=== PATIENT | male | born 1950 | race Caucasian/White ===

== ENCOUNTER 2021-02-15 06:07 | Outpatient (REF) | payer MEDICARE, OTHER, SELFPAY ==
[2021-02-15 11:39] LABS: Anion Gap 11 (12-20); Blood Urea Nitrogen 17 mg/dL (9-16); Calcium 9.7 mg/dL (8.4-10.2); Carbon Dioxide 28 mmol/L (22-29); Chloride 105 mmol/L (96-108); Cholesterol 184 mg/dL; Estimated Glomerular Filt Rate > 60; Glucose Random 83 mg/dL (60-115); HDL Cholesterol 59 mg/dL; LDL Cholesterol Calculated 111 mg/dl; Potassium 4.4 mmol/L (3.3-5.1); Sodium 140 mmol/L (135-145); Triglycerides 74 mg/dL
== END 2021-02-15 06:08 | disposition home or self-care (01) ==
LOC: HO.HMGCLDS 06:07
PROVIDERS: PCP Family Medicine; Visit Provider Family Medicine
DX: E78.2 Mixed hyperlipidemia (principal); I10 Essential (primary) hypertension
CPT/HCPCS: 36415; 80048; 80061

== ENCOUNTER 2021-08-12 06:01 | Outpatient (REF) | payer MEDICARE, OTHER, SELFPAY ==
[2021-08-12 12:06] LABS: Cholesterol 166 mg/dL; HDL Cholesterol 54 mg/dL; LDL Cholesterol Calculated 97 mg/dl; Triglycerides 79 mg/dL
== END 2021-08-12 06:02 | disposition home or self-care (01) ==
LOC: HO.HMGCLDS 06:01
PROVIDERS: Visit Provider Internal Medicine
DX: E78.5 Hyperlipidemia, unspecified (principal)
CPT/HCPCS: 36415; 80061

== ENCOUNTER 2022-05-15 06:03 | Outpatient (REF) | payer MEDICARE, OTHER, SELFPAY ==
[2022-05-15 11:12] LABS: MANUAL DIFF FLAG NO
[2022-05-15 11:17] LABS: Basophils Absolute Auto 0.1 X10*3/uL (0.0-0.2); Basophils Percent Auto 0.9 % (0-2); Eosinophils Absolute Auto 0.4 X10*3/uL (0.0-0.4); Eosinophils Percent Auto 5.9 % (0-4); Hematocrit 43.5 % (42.0-52.0); Hemoglobin 14.3 g/dl (14.0-18.0); Imm Gran Abs Auto 0.03 X10*3/uL (0.00-0.03); Imm Gran Pct Auto 0.4 % (0.0-0.4); Lymphocytes Absolute Auto 2.1 X10*3/uL (1.2-4.9); Lymphocytes Percent Auto 29.9 % (20-40); Mean Corpuscular HGB Conc 32.9 g/dl (31.0-36.0); Mean Corpuscular Hemoglobin 31.4 pg (27.0-33.0); Mean Corpuscular Volume 95.6 fL (80.0-98.0); Mean Platelet Volume 10.7 fL (9.4-12.4); Monocytes Absolute Auto 0.5 X10*3/uL (0.1-1.2); Neutrophils Absolute Auto 3.9 x10*3/uL (2.0-8.3); Neutrophils Percent Auto 55.9 % (45-73); Platelet Count 230 X10*3/uL (160-400); Red Blood Count 4.55 X10*6/uL (4.60-5.80); Red Cell Distribution Width 12.5 % (11.0-16.0); White Blood Count 6.9 X10*3/uL (4.8-10.8)
[2022-05-15 11:37] LABS: Alanine Aminotransferase 20 U/L (0-40); Albumin Level 4.3 g/dL (3.5-5.0); Alkaline Phosphatase 58 U/L (39-117); Anion Gap 16 (12-20); Aspartate Amino Transferase 24 U/L (5-37); Bilirubin Total 0.7 mg/dL (0.0-1.0); Blood Urea Nitrogen 17 mg/dL (9-16); Calcium 9.5 mg/dL (8.4-10.2); Carbon Dioxide 26 mmol/L (22-29); Chloride 103 mmol/L (96-108); Cholesterol 155 mg/dL; Estimated Glomerular Filt Rate > 60; Glucose Fasting 87 mg/dL (60-99); HDL Cholesterol 48 mg/dL; LDL Cholesterol Calculated 94 mg/dl; Potassium 4.4 mmol/L (3.3-5.1); Sodium 141 mmol/L (135-145); Total Protein 7.3 g/dL (6.5-8.0); Triglycerides 69 mg/dL
== END 2022-05-15 06:04 | disposition home or self-care (01) ==
LOC: HO.HMGCLDS 06:03
PROVIDERS: PCP Internal Medicine; Visit Provider Internal Medicine
DX: E78.5 Hyperlipidemia, unspecified (principal); I42.9 Cardiomyopathy, unspecified
CPT/HCPCS: 36415; 80053; 80061; 85025

== ENCOUNTER 2023-02-18 06:01 | Outpatient (REF) | payer MEDICARE, OTHER, SELFPAY ==
[2023-02-18 12:21] LABS: Cholesterol 184 mg/dL; HDL Cholesterol 60 mg/dL; LDL Cholesterol Calculated 112 mg/dl; Triglycerides 62 mg/dL
== END 2023-02-18 06:02 | disposition home or self-care (01) ==
LOC: HO.HMGCLDS 06:01
PROVIDERS: PCP Internal Medicine; Visit Provider Internal Medicine
DX: E78.2 Mixed hyperlipidemia (principal)
CPT/HCPCS: 36415; 80061

== ENCOUNTER 2023-04-28 10:02 | Outpatient (AMB) | payer MEDICARE, OTHER, SELFPAY ==
[2023-04-28 10:41] VITALS: BP 108/64; PULSE 50; O2SAT 95; BMI 27.3
--- NOTE | 2023-04-28 10:41 | MHC.PC.OV ---
Vital Signs 04/28/23 10:41 Height 5 ft 6 in Weight 169 lb BMI 27.3 BP 108/64 Blood Pressure Location Rt brachial Position Sitting Pulse 50 Pulse Source Pulse Oximeter Pulse Oximetry (%) 95 Oxygen Delivery Method Room Air Intake Visit Reasons: Annual PE Intake Note: Pt is here today for PE. Allergies No Known Allergies Allergy (Verified 04/28/23 10:46) Medication List - Last Reconciled 04/28/23 by Nikki Hillman MD finasteride 5 mg PO DAILY lisinopril 5 mg PO DAILY metoprolol succinate ER 12.5 mg PO DAILY rosuvastatin 5 mg PO DAILY tadalafil 5 mg PO DAILY tamsulosin 0.4 mg PO DAILY [id number] 200-5-0.8-400 mg caps PO DAILY zinc acetate 50 mg PO DAILY Tobacco use date assessed: 04/28/23 Fall risk assessment: No Falls in past year Last assessed Fall Risk: 04/28/23 Dental Screening Dental Screen Date: 04/28/23 Did you have a dental visit in the last 12 months?: Yes Did you have a dental problem in the last 6 months where you did not have access to dental care?: No Was dental information given to patient?: Patient has dentist HPI Annual PE HPI Details Patient presents for physical. Patient reports episodes of frequent heartburn, occasionally feeling food getting stuck when he tries to swallow and sensitivity after drinking hot beverages. Patient is concerned about esophageal cancer because of strong family history and usually has surveillance EGD every 5 years by [facility]. He is scheduled for colonoscopy in mid June with [facility]. 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 [facility] Family History Father Esophageal cancer, Onset Age: 72 Mother No problems noted. Sister Breast CA Social History Housing: House Patient Tobacco Use Status: Never used Tobacco e-Cigarette/Vaping Use: Never Used Current occupational status: retired Cognitive needs: No Hearing needs: No Vision needs: Yes Questionnaire PHQ-9 Over the last 2 weeks, how often have you been bothered by any of the following problems? 1. Little interest or pleasure in doing things: not at all 2. Feeling down, depressed, or hopeless: not at all 3. Trouble falling or staying asleep, or sleeping too much: not at all 4. Feeling tired or having little energy: not at all 5. Poor appetite or overeating: not at all 6. Feeling bad about yourself - or that you are a failure or have let yourself or your family down: not at all 7. Trouble concentrating on things, such as reading the newspaper or watching television: not at all 8. Moving or speaking so slowly that other people could have noticed. Or the opposite - being so fidgety or restless that you have been moving around a lot more than usual: not at all 9. Thoughts that you would be better off or of hurting yourself in some way: not at all Total score: 0 Depression Screening Interpretation: Negative Depression Screening Done: Yes Source: Developed by Drs. Bipin Kwan, Malika Guaman, Jaime Meyer and colleagues, with an educational theo from [employer]. Thrive Questionnaire Date Thrive assessed: 04/28/23 I am a: Patient What is your living situation today?: I have a steady place to live Within the past 12 months, did the food you bought not last and you didn't have the money to get more?: Never true Within the past 12 months, did you worry whether your food would run out before you got money to buy more?: Never true Do you have trouble paying for medicines?: No Do you have trouble getting transportation to medical appointments?: No Do you have trouble paying your heating and electricity bill?: No Do you have trouble taking care of your child, family member or friend?: No Do you have trouble with day-to-day activities such as bathing, preparing meals, shopping, managing finances, etc.?: No Are you currently unemployed and looking for a job?: No Are you interested in more education?: No Please select the resources that you would like help with: None Currently or been in a relationship where the following occur: no concerns reported AUDIT C Alcohol Use Questionnaire (AUDIT-C) 1. How often do you have a drink containing alcohol?: 2-4 times a month 2. How many drinks containing alcohol do you have on a typical day when you are drinking?: 1 or 2 3. How often do you have six or more drinks on one occasion?: Never Total Score: 2 JACQUELINE-7 AMB Questionnaire JACQUELINE-7 Date JACQUELINE - 7 assessed: 04/28/23 Feeling nervous, anxious, or on edge: 0 = Not at all Not being able to stop or control worryin = Not at all Worrying too much about different things: 0 = Not at all Trouble relaxin = Not at all Being so restless that it is hard to sit still: 0 = Not at all Becoming easily annoyed or irritable: 0 = Not at all Feeling afraid as if something awful might happen: 0 = Not at all Total JACQUELINE-7 score (0-4 normal; 5-9 mild; 10-14 moderate; 15-21 severe): 0 Source: Developed by Drs. Bipin Kwan, Malika Guaman, Jaime Meyer and colleagues, with an educational theo from [employer]. Review of Systems Const All systems reviewed & are unremarkable except as noted in HPI and below Reports no additional complaints Eyes Reports no additional complaints ENT Reports no additional complaints Card Reports no additional complaints Resp Reports no additional complaints GI Reports no additional complaints Reports no additional complaints Musc Reports no additional complaints Physical exam (Primary Care) Vital Signs: Last Vital Signs Pulse 50 04/28/23 10:41 BP 108/64 04/28/23 10:41 Pulse Ox 95 04/28/23 10:41 Oxygen Delivery Method Room Air 04/28/23 10:41 BMI result Body Mass Index 27.3 Tobacco/Smoking Status: Tobacco use Status Tobacco use date assessed 04/28/23 04/28/23 10:50 Patient Tobacco Use Status Never used Tobacco 04/28/23 10:41 e-Cigarette/Vaping Use Never Used 04/28/23 10:41 PHQ-9: PHQ-9 Score PHQ-9: Total score 0 04/28/23 10:51 Depression Screening Interpretation: Negative Thrive Assessment: Date of Thrive Assessment Date Thrive assessed 04/28/23 04/28/23 10:51 Currently or been in a relationship where the following occur: no concerns reported Const General: no acute distress HENMT Ears: hearing grossly normal bilaterally Mouth: Normal oral and palatal mucosa present Throat: Yes posterior oropharynx normal Eyes General: appearance normal, both eyes and all related structures Neck Neck: Yes no lymphadenopathy and Yes supple Resp Effort & Inspection: normal respiratory effort Auscultation: clear to auscultation bilaterally Cardio Rhythm: regular rhythm Heart sounds: S1 normal heart sound present and S2 normal heart sound present GI Inspection: Yes normal to inspection Palpation (GI): Soft to palpation Percussion: Yes normal to percussion Auscultation: normal bowel sounds Assessment and Plan Assessment & Plan (1) GERD (gastroesophageal reflux disease): Code(s): K21.9 - Gastro-esophageal reflux disease without esophagitis Plan: Continue anti GERD diet PPIs and patient will discuss need for EGD with a continuous mining machine coal miner at [facility] (2) Hx of esophagogastroduodenoscopy: Comment: Q 5 yrs, [facility] . FHx esophageal ca Code(s): Z98.890 - Other specified postprocedural states (3) Hyperlipidemia: Code(s): E78.5 - Hyperlipidemia, unspecified Plan: Continue crestor (4) Annual physical exam: Code(s): Z00.00 - Encounter for general adult medical examination without abnormal findings (5) Cardiomyopathy: Comment: Dr. León annually, last Echo 01/2019, EF 50%, MR mild, Code(s): I42.9 - Cardiomyopathy, unspecified Plan: Continue current medications and follow-up with Cardiology Orders: Orders Complete Blood Count Auto Diff Today E78.5 - Hyperlipidemia, unspecified, Z00.00 - Encounter for general adult medical examination without abnormal findings Comprehensive [place]. Panel Fast Today E78.5 - Hyperlipidemia, unspecified, Z00.00 - Encounter for general adult medical examination without abnormal findings Referrals Gastroenterology Referral K21.9 - Gastro-esophageal reflux disease without esophagitis, Z00.00 - Encounter for general adult medical examination without abnormal findings, Z98.890 - Other specified postprocedural states Coding Level of Care Code Est Pt Prev Care >65y(90333) Diagnoses GERD (gastroesophageal reflux disease) K21.9 Hx of esophagogastroduodenoscopy Z98.890 Hyperlipidemia E78.5 Annual physical exam Z00.00 Cardiomyopathy I42.9
== END 2023-04-28 11:35 | disposition home or self-care (01) ==
PROVIDERS: Visit Provider Internal Medicine
DX: Z00.00 Encounter for general adult medical examination without abnormal findings (principal); K21.9 Gastro-esophageal reflux disease without esophagitis; Z98.890 Other specified postprocedural states; I42.9 Cardiomyopathy, unspecified; E78.5 Hyperlipidemia, unspecified
CPT/HCPCS: 99397

== ENCOUNTER 2023-07-24 06:04 | Outpatient (REF) | payer MEDICARE, OTHER, SELFPAY | END 2023-07-24 06:05 | disposition home or self-care (01) | LOC: HO.HMGCLDS 06:04 | PROVIDERS: PCP Internal Medicine; Visit Provider Internal Medicine | DX: Z00.00 Encounter for general adult medical examination without abnormal findings (principal); E78.5 Hyperlipidemia, unspecified | CPT/HCPCS: 36415; 80053; 85025 ==

== ENCOUNTER 2024-04-29 08:02 | Outpatient (AMB) | payer MEDICARE, OTHER, SELFPAY ==
[2024-04-29 08:06] VITALS: BP 102/60; PULSE 53; O2SAT 98; BMI 26.6
--- NOTE | 2024-04-29 08:06 | A.OFFPC_ITS ---
Vital Signs 04/29/24 08:06 Height 5 ft 6 in Weight 165 lb BMI 26.6 BP 102/60 Blood Pressure Location Lt brachial Position Sitting Pulse 53 Pulse Source Pulse Oximeter Pulse Oximetry (%) 98 Oxygen Delivery Method Room Air Intake Visit Reasons: Annual Pe Intake Note: Pt is here today for PE. Allergies No Known Allergies Allergy (Verified 04/29/24 08:09) Medication List - Last Reconciled 04/29/24 by Nikki Hillman MD finasteride 5 mg PO DAILY lisinopril 5 mg PO DAILY metoprolol succinate ER 12.5 mg PO DAILY rosuvastatin 5 mg PO DAILY tadalafil 5 mg PO DAILY tamsulosin 0.4 mg PO DAILY [id number] 200-5-0.8-400 mg caps PO DAILY zinc acetate 50 mg PO DAILY Tobacco use date assessed: 04/29/24 Fall risk assessment: No Falls in past year Last assessed Fall Risk: 04/29/24 Dental Screening Dental Screen Date: 04/29/24 Did you have a dental visit in the last 12 months?: Yes Did you have a dental problem in the last 6 months where you did not have access to dental care?: No Was dental information given to patient?: Patient has dentist HPI Annual Pe HPI Details Patient presents for PE [facility] Medical History History of broken collarbone Surgical History H/O removal of cyst History of repair of ACL H/O foot surgery Family History Father Esophageal cancer, Onset Age: 72 Mother No problems noted. Sister Breast CA Social History Housing: House Patient Tobacco Use Status: Never used Tobacco e-Cigarette/Vaping Use: Never Used service: No Current occupational status: retired Cognitive needs: No Hearing needs: No Vision needs: Yes Questionnaire PHQ-9 Over the last 2 weeks, how often have you been bothered by any of the following problems? 1. Little interest or pleasure in doing things: not at all 2. Feeling down, depressed, or hopeless: not at all 3. Trouble falling or staying asleep, or sleeping too much: not at all 4. Feeling tired or having little energy: not at all 5. Poor appetite or overeating: not at all 6. Feeling bad about yourself - or that you are a failure or have let yourself or your family down: not at all 7. Trouble concentrating on things, such as reading the newspaper or watching television: not at all 8. Moving or speaking so slowly that other people could have noticed. Or the opposite - being so fidgety or restless that you have been moving around a lot more than usual: not at all 9. Thoughts that you would be better off or of hurting yourself in some way: not at all Total score: 0 Depression Screening Interpretation: Negative Depression Screening Done: Yes 25148 - PHQ-9 Billing: Yes Source: Developed by Drs. Bipin Kwan, Malika Guaman, Jaime Meyer and colleagues, with an educational theo from [employer]. Thrive Questionnaire Date Thrive assessed: 04/29/24 I am a: Patient What is your living situation today?: I have a steady place to live Within the past 12 months, did the food you bought not last and you didn't have the money to get more?: Never true Within the past 12 months, did you worry whether your food would run out before you got money to buy more?: Never true Do you have trouble paying for medicines?: No Do you have trouble getting transportation to medical appointments?: No Do you have trouble paying your heating and electricity bill?: No Do you have trouble taking care of your child, family member or friend?: No Do you have trouble with day-to-day activities such as bathing, preparing meals, shopping, managing finances, etc.?: No Are you currently unemployed and looking for a job?: No Are you interested in more education?: I choose not to answer this question Please select the resources that you would like help with: None Currently or been in a relationship where the following occur: No concerns reported THRIVE Score: 0 AUDIT C Alcohol Use Questionnaire (AUDIT-C) 1. How often do you have a drink containing alcohol?: Monthly or less 2. How many drinks containing alcohol do you have on a typical day when you are drinking?: 1 or 2 3. How often do you have six or more drinks on one occasion?: Never Total Score: 1 JACQUELINE-7 AMB Questionnaire JACQUELINE-7 Date JACQUELINE - 7 assessed: 04/29/24 Feeling nervous, anxious, or on edge: 0 = Not at all Not being able to stop or control worryin = Not at all Worrying too much about different things: 0 = Not at all Trouble relaxin = Not at all Being so restless that it is hard to sit still: 0 = Not at all Becoming easily annoyed or irritable: 0 = Not at all Feeling afraid as if something awful might happen: 0 = Not at all Total JACQUELINE-7 score (0-4 normal; 5-9 mild; 10-14 moderate; 15-21 severe): 0 Source: Developed by Drs. Bipin Kwan, Malika Guaman, Jaime Meyer and colleagues, with an educational theo from [employer]. JACQUELINE-7 Assessment Billing JACQUELINE-7 Assessment Tool: JACQUELINE-7 Assessment 35143 Review of Systems Const All systems reviewed & are unremarkable except as noted in HPI and below ENT Reports no additional complaints Card Reports no additional complaints Resp Reports no additional complaints GI Reports no additional complaints Reports no additional complaints Physical exam (Primary Care) Vital Signs: Last Vital Signs Pulse 53 04/29/24 08:06 BP 102/60 04/29/24 08:06 Pulse Ox 98 04/29/24 08:06 Oxygen Delivery Method Room Air 04/29/24 08:06 BMI result Body Mass Index 26.6 Tobacco/Smoking Status: Tobacco use Status Tobacco use date assessed 04/29/24 04/29/24 08:14 Patient Tobacco Use Status Never used Tobacco 04/29/24 08:07 e-Cigarette/Vaping Use Never Used 04/29/24 08:07 PHQ-9: PHQ-9 Score PHQ-9: Total score 0 04/29/24 08:50 Depression Screening Interpretation: Negative Thrive Assessment: Date of Thrive Assessment Date Thrive assessed 04/29/24 04/29/24 08:16 Currently or been in a relationship where the following occur: No concerns reported Const General: no acute distress HENMT Head: Yes normal to inspection Ears: hearing grossly normal bilaterally Face and sinus: Yes normal facial exam Mouth: Normal oral and palatal mucosa present Throat: Yes posterior oropharynx normal Eyes General: appearance normal, both eyes and all related structures Neck Neck: Yes no lymphadenopathy and Yes supple Resp Effort & Inspection: normal respiratory effort Auscultation: clear to auscultation bilaterally Cardio Rhythm: regular rhythm Heart sounds: S1 normal heart sound present and S2 normal heart sound present GI Inspection: Yes normal to inspection Palpation (GI): Soft to palpation Percussion: Yes normal to percussion Auscultation: normal bowel sounds Coding Level of Care Code Est Pt Prev Care >65y(99434) Diagnoses Hx of colonoscopy Z98.890 Hx of esophagogastroduodenoscopy Z98.890 Annual physical exam Z00.00 Cardiomyopathy I42.9 BPH (benign prostatic hyperplasia) N40.0 Additional Codes JACQUELINE-7 Assessment Billing - JACQUELINE-7 Assessment Tool: JACQUELINE-7 Assessment 49881 ([id number]) Assessment & Plan Assessment & Plan (1) Hx of colonoscopy: Comment: polyps Q 5yrs, 06/10 2 polyps, Code(s): Z98.890 - Other specified postprocedural states Category: Surgical Plan: Follow-up GI (2) Hx of esophagogastroduodenoscopy: Comment: Q 5 yrs, [facility] . FHx esophageal ca Code(s): Z98.890 - Other specified postprocedural states Category: Surgical Plan: Follow-up with GI (3) Annual physical exam: Code(s): Z00.00 - Encounter for general adult medical examination without abnormal findings Category: Medical Plan: Well-balanced diet regular physical activity discussed with the patient (4) Cardiomyopathy: Comment: Dr. León annually, last Echo 01/2019, EF 50%, MR mild, Code(s): I42.9 - Cardiomyopathy, unspecified Category: Medical Plan: Continue current medications follow-up with Cardiology (5) BPH (benign prostatic hyperplasia): Code(s): N40.0 - Benign prostatic hyperplasia without lower urinary tract symptoms Category: Medical Plan: Continue current medications follow-up with Urology Orders: Orders Complete Blood Count Auto Diff Today I42.9 - Cardiomyopathy, unspecified, Z00.00 - Encounter for general adult medical examination without abnormal findings IRON PROFILE Today I42.9 - Cardiomyopathy, unspecified, Z00.00 - Encounter for general adult medical examination without abnormal findings UA w Microscopic Today I42.9 - Cardiomyopathy, unspecified, Z00.00 - Encounter for general adult medical examination without abnormal findings Comprehensive [place]. Panel Fast 1 Year E78.5 - Hyperlipidemia, unspecified, I42.9 - Cardiomyopathy, unspecified, Z00.00 - Encounter for general adult medical examination without abnormal findings UA w Microscopic 1 Year E78.5 - Hyperlipidemia, unspecified, I42.9 - Cardiomyopathy, unspecified, Z00.00 - Encounter for general adult medical examination without abnormal findings Comprehensive [place]. Panel Fast Today I42.9 - Cardiomyopathy, unspecified, Z00.00 - Encounter for general adult medical examination without abnormal findings Lipid Panel Today I42.9 - Cardiomyopathy, unspecified, Z00.00 - Encounter for general adult medical examination without abnormal findings Lipid Panel 1 Year E78.5 - Hyperlipidemia, unspecified, I42.9 - Cardiomyopathy, unspecified, Z00.00 - Encounter for general adult medical examination without abnormal findings Complete Blood Count Auto Diff 1 Year E78.5 - Hyperlipidemia, unspecified, I42.9 - Cardiomyopathy, unspecified, Z00.00 - Encounter for general adult medical examination without abnormal findings
== END 2024-04-29 09:04 | disposition home or self-care (01) ==
PROVIDERS: PCP Internal Medicine; Visit Provider Internal Medicine
DX: Z00.00 Encounter for general adult medical examination without abnormal findings (principal); Z98.890 Other specified postprocedural states; I42.9 Cardiomyopathy, unspecified; N40.0 Benign prostatic hyperplasia without lower urinary tract symptoms

== ENCOUNTER → 2024-04-29 08:02 | Outpatient (BNVA) | payer MEDICARE, OTHER, SELFPAY | PROVIDERS: PCP Internal Medicine; Visit Provider Internal Medicine | DX: Z00.00 Encounter for general adult medical examination without abnormal findings (principal); I42.9 Cardiomyopathy, unspecified; N40.0 Benign prostatic hyperplasia without lower urinary tract symptoms; Z98.890 Other specified postprocedural states | CPT/HCPCS: 96127; 99397 ==